=== PATIENT | female | born 1950 | race Caucasian/White ===

== ENCOUNTER 2018-12-14 11:28 | Emergency (ER) | payer OTHER ==
[2018-12-14] MEDS ORDERED: IPRATROPIUM/ALBUTEROL 3 ML VIAL NEB ONE (11:43)
--- NOTE | 2018-12-14 12:16 | RAD ---
EXAM DESCRIPTION: Chest,1 View CLINICAL HISTORY: 68 years Female, possible vent assoc pna COMPARISON: Radiograph of the chest dated 12/06/2018.. TECHNIQUE: AP radiograph of the chest was obtained. FINDINGS: Trachea is midline.The cardiomediastinal silhouette is normal in size. The pulmonary vasculature is within normal limits. Multifocal patchy airspace opacities are identified throughout both lungs, most likely representing multifocal pneumonia. Tracheostomy tube is identified.. IMPRESSION: Multifocal patchy airspace opacities are identified throughout both lungs, most likely representing multifocal pneumonia. Electronically signed by: Elin Fox MD 12/14/2018 12:14 PM CDT
[2018-12-14] MEDS ORDERED: SODIUM CHLORIDE 0.9% 1000ML 1,000 ML IVS ONE (12:19)
[2018-12-14] MEDS ORDERED: CEFEPIME 1 GM in SODIUM CHLORIDE 0.9% 50ML 50 ML IVPB ONE (12:20)
[2018-12-14] MEDS ORDERED: VANCOMYCIN HCL INJ 1,000 MG in SODIUM CHLORIDE 0.9% 250ML 250 ML IVPB ONE (12:22)
[2018-12-14] MEDS ORDERED: SODIUM CHLORIDE 0.9% 50ML 50 ML ONE (12:24)
[2018-12-14] MEDS ORDERED: CEFEPIME 2 GM VIAL ONE (12:24)
[2018-12-14] MEDS ORDERED: methylPREDNISolone SODIUM SUC 125 MG/2 ML VIAL IV ONE (12:38)
[2018-12-14] MEDS ORDERED: DEXTROSE 5% 250ML 250 ML ONE (12:49)
[2018-12-14] MEDS ORDERED: NOREPINEPHRINE BITARTRATE 4 MG/4 ML VIAL IVPB ONE (12:49)
[2018-12-14] MEDS ORDERED: NOREPINEPHRINE BITARTRATE 4 MG in DEXTROSE 5% 250ML 250 ML IVPB SCH (13:00)
[2018-12-14] MEDS ORDERED: SODIUM CHLORIDE 0.9% 250ML 250 ML ONE ×2 (13:14→14:29)
[2018-12-14] MEDS ORDERED: VANCOMYCIN HCL INJ 1,000 MG VIAL IVPB ONE (13:14)
[2018-12-14] MEDS ORDERED: AZITHROMYCIN IV 500 MG in SODIUM CHLORIDE 0.9% 250ML 250 ML IVPB ONE (14:03)
--- NOTE | 2018-12-14 14:07 | ED.PDOC ---
History of Present Illness - General Chief Complaint: Respiratory Problem Stated Complaint: possible aspiration Time Seen by Provider: 12/14/18 11:41 Source: patient Exam Limitations: no limitations - History of Present Illness Initial Comments: the patient is a 68-year-old female with progressive neurological disease ALS presenting secondary to new onset fever and hypoxia. The patient is ventilator dependent chronically and has a PEG tube. Apparently the patient had no fever and good oxygen saturation about 3 hours prior to EMS being called. The patient's saturation dropped to around 88% and the patient spiked a 102 fever so EMS was called. The patient is very thin and frail. Normal systolic blood pressures according to staff are in the high 90s to low 100s. Blood pressures here on the systolic end have ranged from 70-85. the patient is pale and weak. She is arousable to voice and is able to communicate. She is not in pain. She has had a productive sputum. She has a hard increased oxygen concentrations to maintain adequate saturations. She apparently did vomit up some of her tube feeding this morning. She was doing well yesterday. Timing/Duration: 4-6 hours Severity: moderate Improving Factors: nothing Worsening Factors: nothing Associated Symptoms: fever/chills, malaise, weakness Allergies/Adverse Reactions: Allergies NO KNOWN ALLERGY Allergy (Verified 12/14/18 11:44) Review of Systems - Review of Systems Review of Systems: 12/14/18 14:08 extensive questioning is however limited due to patient's more limited communication abilities. Constitutional: States: malaise, weakness EENTM: States: no symptoms reported Respiratory: States: short of breath Cardiology: States: no symptoms reported Gastrointestinal/Abdominal: States: no symptoms reported Genitourinary: States: no symptoms reported Musculoskeletal: States: no symptoms reported Skin: States: no symptoms reported Neurological: States: see HPI Endocrine: States: no symptoms reported All other Systems: No Change from Baseline Past Medical History (General) - Patient Medical History Hx Stroke: No Hx Congestive Heart Failure: No Hx Thyroid Disease: Yes Hx Diabetes: No - Vaccination History Hx Influenza Vaccination: - UNKNOWN Hx Pneumococcal Vaccination: - UNKNOWN - Activities of Daily Living Correction/Assisted Living (if applicable):: [facility] Family Medical History - Family History Mother Family History: Unknown Living Status: Unknown Physical Exam - Physical Exam General Appearance: Alert, Frail, Ill Appearing Eye Exam: bilateral normal Ears, Nose, Throat: hearing grossly normal, normal pharynx - mucous membranes are mildly dry Neck: full range of motion, supple Respiratory: no accessory muscle use, other - patient is ventilator dependent for respiratory drive. She does have scattered Rales and rhonchi. Cardiovascular/Chest: normal peripheral pulses, no edema, other Peripheral Pulses: radial,right: 2+, radial,left: 2+ - egular rate, dorsalis pedis,right: 2+, dorsalis pedis,left: 2+ Gastrointestinal/Abdominal: non tender, soft, other - G-tube is in place Extremity: non-tender, no pedal edema, no calf tenderness, normal capillary refill, other - the patient does have significant stiffness primarily of her lower extremities. 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 Skin Exam: pallor Comments: Vital Signs - 24 hr 12/14/18 12/14/18 12/14/18 11:38 11:57 13:06 Temperature 98.7 F Pulse Rate 86 Pulse Rate [ 82 Right Brachial] Respiratory 18 19 Rate Respiratory 18 18 Rate [Volume Control Data] Blood Pressure 83/46 [Right Arm] O2 Sat by Pulse 97 100 Oximetry 12/14/18 13:29 Temperature Pulse Rate Pulse Rate [ Right Brachial] Respiratory 22 Rate Respiratory Rate [Volume Control Data] Blood Pressure [Right Arm] O2 Sat by Pulse Oximetry Progress - Progress Progress: 12/14/18 14:19 the patient's a 68-year-old female presenting to the emergency room by EMS secondary to hypoxia and fever. The patient has ventilator dependent bilateral pneumonia. She has been placed on vancomycin, cefepime and azithromycin. Blood and sputum cultures are being done. The patient additionally has septic shock. She has received 2 L of IV fluids and has been started on levophed. She is maintaining systolic blood pressures around 100 with 5 mics. She has required around 40% FiO2 to maintain oxygen saturations. The patient is being transferred to [facility] for higher level of care. She has received a breathing treatment as well. Central line has been placed as per request of receiving facility. 12/14/18 14:24 critical care time spent 40 minutes excluding otherwise billable procedures. - Results/Orders Results/Orders: 12/14/18 11:42 Telemetry .CONTINUOUS 12/14/18 11:55 Mechanical Ventilation DAILY 12/14/18 11:58 BLOOD CULTURE Stat 12/14/18 12:21 SPUTUM CULTURE Stat 12/14/18 12:22 Vancomycin HCl Inj 1,000 mg Sodium Chloride 0.9% 250Ml [NS 250ml] 250 ml IVPB ONCE 12/14/18 13:00 Norepinephrine Bitartrate [Levophed] 4 mg Dextrose 5% 250Ml [D5W 250ml] 250 ml IVPB PRN 12/14/18 13:05 Urine Culture Stat hest x-ray shows significant scattered infiltrates. Laboratory Results - last 24 hr 12/14/18 12/14/18 12/14/18 11:58 11:58 11:58 WBC 8.7 RBC 2.96 L Hgb 8.9 L Hct 26.5 L MCV 89.6 MCH 30.2 MCHC 33.7 RDW 16.2 H Plt Count 194 MPV 8.0 Absolute Neuts (auto) 7.50 H Absolute Lymphs (auto) 0.80 L Absolute Monos (auto) 0.40 Absolute Eos (auto) 0.00 Absolute Basos (auto) 0.00 Neutrophils % 85.8 H Lymphocytes % 9.0 L Monocytes % 5.1 Eosinophils % 0.0 L Basophils % 0.1 PT 11.3 H INR 1.13 PTT (SP) 31.9 H Sodium 137 Potassium 3.5 L Chloride 102 Carbon Dioxide 25 Anion Gap 13.5 BUN 24 H Creatinine 0.46 L BUN/Creatinine Ratio 52.2 H Random Glucose 124 H Serum Osmolality 279.3 Lactic Acid Calcium 8.6 Total Bilirubin 0.3 AST 17 ALT 10 Alkaline Phosphatase 65 Creatine Kinase 17 L CK-MB (CK-2) 0.7 CK-MB (CK-2) % 4.12 Troponin I < 0.02 B-Natriuretic Peptide 41.1 Serum Total Protein 6.9 Albumin 2.4 L Globulin 4.5 H Albumin/Globulin Ratio 0.5 L Urine Color Urine Appearance Urine pH Ur Specific [place] Urine Protein Urine Glucose (UA) Urine Ketones Urine Blood Urine Nitrite Urine Bilirubin Urine Urobilinogen Ur Leukocyte Esterase Urine RBC Urine WBC Ur Epithelial Cells Urine Bacteria 12/14/18 12/14/18 11:58 13:05 WBC RBC Hgb Hct MCV MCH MCHC RDW Plt Count MPV Absolute Neuts (auto) Absolute Lymphs (auto) Absolute Monos (auto) Absolute Eos (auto) Absolute Basos (auto) Neutrophils % Lymphocytes % Monocytes % Eosinophils % Basophils % PT INR PTT (SP) Sodium Potassium Chloride Carbon Dioxide Anion Gap BUN Creatinine BUN/Creatinine Ratio Random Glucose Serum Osmolality Lactic Acid 1.8 Calcium Total Bilirubin AST ALT Alkaline Phosphatase Creatine Kinase CK-MB (CK-2) CK-MB (CK-2) % Troponin I B-Natriuretic Peptide Serum Total Protein Albumin Globulin Albumin/Globulin Ratio Urine Color Dk yellow H Urine Appearance Cloudy Urine pH 7.5 Ur Specific [place] 1.020 Urine Protein 30 Urine Glucose (UA) Negative Urine Ketones Trace Urine Blood Small H Urine Nitrite Negative Urine Bilirubin Small H Urine Urobilinogen 1.0 Ur Leukocyte Esterase Small H Urine RBC 3-5 H Urine WBC 3-5 H Ur Epithelial Cells 0-1 Urine Bacteria 4+ H Procedures - Central Line Femoral vein Central Line Lumen: triple Central Line Procedure Prep: betadine prep Anesthesia: Lidocaine cc's of anesthesia: 2 Complications: none Central Line Post Position: sutured Progress: Central line placed in the right femoral vein after ultrasound confirmation of location. Triple-lumen catheter placed. All lines flush and draw well. Sterile prep and drape were used. 2 cc of lidocaine were used for local anesthetic. Patient tolerated the procedure well. Departure - Departure Clinical Impression: Septic shock, Ventilator associated pneumonia Disposition: Transfer to Hospital Departure Forms: ED Discharge - Pt. Copy, Patient Portal Self Enrollment Referrals: TORY POPE [Primary Care Provider] - 1-2 Weeks Transfer to Outside Facility - Transfer Information Accepting Provider:: dr vyas Accepting Facility: [facility] Reason for Transfer: ICU
[2018-12-14] MEDS ORDERED: AZITHROMYCIN IV 500 MG VIAL IVPB ONE (14:29)
[2018-12-14 14:33] VITALS: TEMP 97.6
[2018-12-14 15:22] VITALS: BP 113/55; O2SAT 94
== END 2018-12-14 15:22 | disposition short-term general hospital (02) ==
LOC: ER 11:28
DX: A41.9 Sepsis, unspecified organism (principal); J95.851 Ventilator associated pneumonia; R65.21 Severe sepsis with septic shock; G12.21 Amyotrophic lateral sclerosis; E07.9 Disorder of thyroid, unspecified; Z99.81 Dependence on supplemental oxygen; Z93.1 Gastrostomy status; Y83.8 Other surgical procedures as the cause of abnormal reaction of the patient, or of later complication, without mention of misadventure at the time of the procedure
CPT/HCPCS: 36415; 71045; 80053; 81001; 82550; 82553; 83605; 83880; 84484; 85025; 85610; 85730; 87040; 87086; 87502; 94002; 94640; A4216; J0456; J0692; J2930; J3370; J7030; J7050; J7060; J7620

== ENCOUNTER 2019-03-29 10:27 | Emergency (ER) | payer OTHER ==
--- NOTE | 2019-03-29 11:28 | CT ---
EXAM DESCRIPTION: Cervical Spine CLINICAL HISTORY: fall COMPARISON: None Available. TECHNIQUE: Multiple axial images of the cervical spine without contrast. Multiplanar reformatted images. This exam was performed according to our departmental dose-optimization program, which includes automated exposure control, adjustment of the mA and/or kV according to patient size and/or use of iterative reconstruction technique. FINDINGS: Vertebral body stature and alignment are maintained. There is no acute fracture or destructive osseous lesion. Multilevel spondylitic changes with moderate disc narrowing from C4-C5 through C6-C7. No CT evidence of significant posterior disc bulge, spinal canal, or neural foraminal stenosis. Atherosclerosis in the visualized arteries. Masslike consolidation in the visualized right upper lobe. An endotracheal tube is present. Small bilateral mastoid effusions. IMPRESSION: 1. No CT evidence of an acute osseous abnormality in the cervical spine. 2. Masslike right upper lobe consolidation. 3. Spondylitic changes. Electronically signed by: Jhon Villaseñor MD 03/29/2019 11:26 AM CDT
--- NOTE | 2019-03-29 11:32 | CT ---
EXAM DESCRIPTION: Head CLINICAL HISTORY: fall COMPARISON: None available TECHNIQUE: Multiple axial images of the head without contrast. Multiplanar reformatted images. This exam was performed according to our departmental dose-optimization program, which includes automated exposure control, adjustment of the mA and/or kV according to patient size and/or use of iterative reconstruction technique. FINDINGS: There is no CT evidence of intracranial hemorrhage, mass effect, or large territory infarction. Moderate generalized volume loss. Mild patchy supratentorial white matter hypodensities. There are no abnormal extra-axial fluid collections. Calcific plaque in the visualized arteries. There is no acute calvarial defect. Small bilateral mastoid effusions. Mucosal thickening in the ethmoid air cells and sphenoid sinuses. IMPRESSION: 1. No CT evidence of an acute intracranial abnormality. 2. Senescent changes. Electronically signed by: Jhon Villaseñor MD 03/29/2019 11:30 AM CDT
--- NOTE | 2019-03-29 11:34 | CT ---
PROVIDED CLINICAL HISTORY/REASON FOR EXAM: fall STUDY TYPE/TECHNIQUE: CT CHEST WITHOUT IV CONTRAST This exam was performed according to our departmental dose-optimization program, which includes automated exposure control, adjustment of the mA and/or kV according to patient size and/or use of iterative reconstruction technique. COMPARISON: None at time of initial interpretation. FINDINGS: Tracheostomy with appropriate positioning. No axillary adenopathy. Normal caliber thoracic aorta. Mild coronary artery calcifications. No significant pericardial effusion. Nonobstructing left nephrolithiasis. Cholecystectomy. Otherwise the visualized upper abdomen is unremarkable. Mediastinal adenopathy. A right paratracheal reference lymph node measures 1.3 cm series 3 image 17. A reference precarinal node measures 1.1 cm series 3 image 21. No pneumothorax. No pleural effusion. There are diffuse bilateral consolidative and tree-in-bud airspace disease bilaterally, most pronounced within the lower lobes posteriorly. T12 vertebroplasty. Age-indeterminate T3 wedge compression deformity with 50% height loss anteriorly. Accentuated thoracic kyphosis. No definite acute fracture is identified. IMPRESSION: 1. No acute traumatic pathology within the chest. 2. Confluent consolidative and tree-in-bud nodular airspace disease bilaterally most pronounced within the lower lobes, which is likely infectious. Consider aspiration. Recommend repeat chest CT in three months. 3. Indeterminate mediastinal adenopathy which may be reactive. Recommend attention on follow-up. 4. Age-indeterminate anterior T3 wedge compression deformity with 50% height loss. Electronically signed by: Turner Carr MD 03/29/2019 11:32 AM CDT
--- NOTE | 2019-03-29 11:38 | RAD ---
EXAM DESCRIPTION: Pelvis CLINICAL HISTORY: 68 years Female, fall COMPARISON: None. FINDINGS: Single AP view of the pelvis shows no displaced pelvic fracture. Mild to moderate degenerative changes in both hips. No soft tissue abnormality. Medical tubing projecting over the mid abdomen is only partially visualized but probably represents a percutaneous feeding tube. IMPRESSION: No acute pelvic abnormality. If clinical suspicion of pelvic injury persists, CT should be considered. Electronically signed by: Jet Santana MD 03/29/2019 11:37 AM CDT
--- NOTE | 2019-03-29 11:39 | RAD ---
EXAM DESCRIPTION: Shoulder,Left 2 or More Views CLINICAL HISTORY: 68 years Female, fall COMPARISON: None. FINDINGS: Two views of the left shoulder show a slightly displaced fracture involving the left humeral head to the base of the greater tuberosity. Questionable extension into the humeral neck. The glenohumeral joint is anatomically aligned. The AC joint is unremarkable. A tracheostomy tube is present. No apparent left-sided rib fracture or soft tissue abnormality. IMPRESSION: Minimally displaced left humeral head fracture with questionable left humeral neck extension. If relevant, CT could be performed for further evaluation. Electronically signed by: Jet Santana MD 03/29/2019 11:38 AM CDT
[2019-03-29] MEDS ORDERED: levoFLOXacin 500 MG TAB GT ONE (11:51)
--- NOTE | 2019-03-29 12:59 | RAD ---
PROVIDED CLINICAL HISTORY/REASON FOR EXAM: fall wiht humeral head fxr Findings: Number of images: Two Location: Left elbow Osteopenia. No significant joint effusion. Mild left elbow degenerative change. No acute fracture is identified. No dislocation. No focal soft tissue abnormality. IMPRESSION: No evidence of acute process in the left elbow. Electronically signed by: Turner Carr MD 03/29/2019 12:57 PM CDT
--- NOTE | 2019-03-29 13:02 | RAD ---
PROVIDED CLINICAL HISTORY/REASON FOR EXAM: fall wiht humeral head fxr Findings: Number of images: Two Location: Left wrist Evaluation limited by the degree of osteopenia. Possible nondisplaced ulnar styloid avulsion injury. No other fracture is identified. 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 No focal soft tissue swelling. IMPRESSION: Limited examination demonstrating a possible nondisplaced ulnar styloid avulsion fracture. Electronically signed by: Turner Carr MD 03/29/2019 1:00 PM CDT
[2019-03-29] MEDS ORDERED: HYDROcodone 5MG/APAP 325MG 1 EA TAB PO ONE (13:25)
--- NOTE | 2019-03-29 13:41 | ED.PDOC ---
History of Present Illness - General Chief Complaint: Trauma Stated Complaint: Pt fell out of bed, possible left shoulder injury Time Seen by Provider: 03/29/19 10:55 Source: patient Exam Limitations: no limitations - History of Present Illness Initial Comments: the patient is a 68-year-old female presenting to the emergency room after having fallen out of bed at her long-term care facility. The patient landed on her left side. She seems to be having some pain in the left shoulder area so she was brought in. The patient has severely limited ability to communicate. She cannot speak and she can only blink with her eyes to communicate she is a paraplegic. She has multiple long-standing contractures. No obvious head trauma. No obvious pain with palpation of the neck. There is some diffuse pain around the left shoulder. She appears to have what is most likely either a lipoma or a large cyst to the posterior upper left shoulder. This is no doubt long-standing. No evidence of bruising around that. She has multiple long-standing contractures. The patient is ventilator dependent. She is ventilating easily on her maintenance settings. Timing/Duration: 1 hour Severity: moderate Improving Factors: immobilization Worsening Factors: movement Allergies/Adverse Reactions: Allergies NO KNOWN ALLERGY Allergy (Verified 12/14/18 11:44) Home Medications: Ambulatory Orders Doxycycline (Monohydrate) [Doxycycline Monohydrate] 100 mg PO DAILY #7 tab 03/29/19 Tramadol HCl 50 mg PO Q8HR PRN #20 tab 03/29/19 levoFLOXacin [Levaquin] 500 mg PO DAILY #7 tab 03/29/19 Review of Systems - Review of Systems Review of Systems: 03/29/19 13:43 review of systems is markedly limited to what staff tells us from her long-term care facility. Patient is unable to give a functional review of systems. Constitutional: States: no symptoms reported - no new Musculoskeletal: States: see HPI Neurological: States: no symptoms reported - numerous chronic issues Past Medical History (General) - Patient Medical History Hx Stroke: No Hx Congestive Heart Failure: No Hx Hypertension: No Hx Thyroid Disease: Yes - hypo Hx Diabetes: No Hx Cancer: No - Vaccination History Hx Influenza Vaccination: - UNKNOWN Hx Pneumococcal Vaccination: - UNKNOWN - Social History Hx Depression: Yes - Activities of Daily Living Penitentiary[facility]Assisted Living (if applicable):: [facility] - Female History Patient is a Female of Child Bearing Age (10 -59 yrs old): No Patient : No Family Medical History - Family History Mother Family History: Unknown Living Status: Unknown Physical Exam - Physical Exam General Appearance: Alert, Other - the patient does exhibit pain with movement of the left shoulder. Eye Exam: bilateral normal Ears, Nose, Throat: hearing grossly normal, normal pharynx Neck: non-tender, supple, other - tracheostomy is in place. Respiratory: no respiratory distress, no accessory muscle use, other - she does have bbibasilar rales. Cardiovascular/Chest: normal peripheral pulses, no edema, other - regular rate Peripheral Pulses: radial,right: 2+, radial,left: 2+ Gastrointestinal/Abdominal: soft, other - G-tube is in place Back Exam: other - soft tissue mass to the left posterior shoulder area this is either most consistent with a lipoma or a large cystic structure. Extremity: no pedal edema, normal capillary refill, other - multiple chronic contractures. Neurologic: alert Skin Exam: pallor - she does have a mild abrasion to the left knuckles Comments: Vital Signs - 24 hr 03/29/19 03/29/19 03/29/19 11:02 11:03 11:20 Temperature 98.6 F Pulse Rate [ 87 87 Pulse ox] Respiratory 22 19 Rate Respiratory 19 Rate [Volume Control Data] Blood Pressure 91/60 [R brachial] O2 Sat by Pulse 94 L 95 Oximetry 03/29/19 03/29/19 12:00 12:53 Temperature Pulse Rate [ 75 Pulse ox] Respiratory 16 16 H Rate Respiratory 20 Rate [Volume Control Data] Blood Pressure 86/52 [R brachial] O2 Sat by Pulse 94 L Oximetry Progress - Progress Progress: 03/29/19 13:49 the patient is a 68-year-old female who is ventilator dependent presenting to the emergency room after having fallen out of bed. The patient does have what appears to be in acute minimally displaced left humeral head fracture. For this conservative care will be done in the form of immobilization. She may also have a very mild nondisplaced ulnar styloid fracture on that same side. Due to her contractures, splinting is not recommended. This would likely prove very uncomfortable for her. The patient also has a T3 compression fracture of indeterminate age. I believe this is actually old however if she seems to have significant pain in her back in the near future then repeat evaluation may be warranted. The patient also appears to have bilateral lower lobe pneumonia based on CT scan. Blood work was reassuring. She did have a blood culture done as well as a sputum culture done. The patient is going to placed on Levaquin and doxycycline for the next 7 days for broad-spectrum coverage of this for ventilator associated pneumonia. She does need follow-up with the facility doctor early next week. She does not appear to be having any significant respiratory distress. She is ventilating easily. The patient be transferred back to her long-term care facility for continued management of above issues. - Results/Orders Results/Orders: 03/29/19 11:19 Capnography .ONCE Mechanical Ventilation DAILY 03/29/19 12:15 SPUTUM CULTURE Stat 03/29/19 12:25 BLOOD CULTURE Stat Laboratory Results - last 24 hr 03/29/19 03/29/19 12:25 12:25 WBC 8.4 RBC 3.49 L Hgb 10.7 L Hct 31.3 L MCV 89.9 MCH 30.6 MCHC 34.0 RDW 16.4 H Plt Count 192 MPV 9.1 Absolute Neuts (auto) 6.90 H Absolute Lymphs (auto) 0.70 L Absolute Monos (auto) 0.70 Absolute Eos (auto) 0.10 Absolute Basos (auto) 0.00 Neutrophils % 82.2 H Lymphocytes % 7.9 L Monocytes % 8.3 Eosinophils % 1.2 Basophils % 0.4 Sodium 137 Potassium 4.2 Chloride 103 Carbon Dioxide 25 Anion Gap 13.2 BUN 31 H Creatinine < 0.40 L BUN/Creatinine Ratio 77.0 H Random Glucose 123 H Serum Osmolality 281.7 Calcium 9.3 Total Bilirubin 0.3 AST 18 ALT 15 Alkaline Phosphatase 73 Serum Total Protein 8.4 H Albumin 3.0 L Globulin 5.4 H Albumin/Globulin Ratio 0.6 L x-ray of the pelvis, elbow on the left show no evidence of any acute abnormality. There is the possibility of a small ulnar styloid nondisplaced fracture on the left. X-ray of the shoulder shows a minimally displaced left humeral head fracture with possible mild extension into the humeral neck. CT scan of the chest shows bilateral lower lobe consolidations most consistent with an infectious process. Additionally there is a T3 compression fracture that is of indeterminate age. There is mild mediastinal adenopathy which may be reactive to the above infectious process. CT scan of the cervical spine and head showed no acute pathology. - EKG/XRAY/CT CT Ordered: Yes Departure - Departure Clinical Impression: Ventilator associated pneumonia Humeral head fracture Qualifiers: Encounter type: initial encounter Fracture type: closed Laterality: left Qualified Code(s): S42.292A - Other displaced fracture of upper end of left humerus, initial encounter for closed fracture Fracture of ulnar styloid Qualifiers: Encounter type: initial encounter Fracture type: closed Fracture alignment: non displaced Laterality: left Qualified Code(s): S52.615A - Nondisplaced fracture of left ulna styloid process, initial encounter for closed fracture Fall at [facility] Qualifiers: Encounter type: initial encounter Qualified Code(s): W19.XXXA - Unspecified fall, initial encounter; Y92.129 - Unspecified place in [facility] as the place of occurrence of the external cause Disposition: Discharge to Home or Self Care Condition: Fair Departure Forms: ED Discharge - Pt. Copy, Patient Portal Self Enrollment Instructions: DI for Trauma, Pneumonia in Adults Diet: regular diet Activity: increase activity as tolerated Referrals: TORY POPE [Primary Care Provider] - 1-5 Days Prescriptions: Tramadol HCl 50 mg PO Q8HR PRN #20 tab PRN Reason: Moderate Pain Doxycycline (Monohydrate) [Doxycycline Monohydrate] 100 mg PO DAILY #7 tab levoFLOXacin [Levaquin] 500 mg PO DAILY #7 tab Home Medications: Ambulatory Orders Doxycycline (Monohydrate) [Doxycycline Monohydrate] 100 mg PO DAILY #7 tab 03/29/19 Tramadol HCl 50 mg PO Q8HR PRN #20 tab 03/29/19 levoFLOXacin [Levaquin] 500 mg PO DAILY #7 tab 03/29/19 Additional Instructions: the patient is a 68-year-old female who is ventilator dependent presenting to the emergency room after having fallen out of bed. The patient does have what appears to be in acute minimally displaced left humeral head fracture. For this conservative care will be done in the form of immobilization. She may also have a very mild nondisplaced ulnar styloid fracture on that same side. Due to her contractures, splinting is not recommended. This would likely prove very uncomfortable for her. The patient also has a T3 compression fracture of indeterminate age. I believe this is actually old however if she seems to have significant pain in her back in the near future then repeat evaluation may be warranted. The patient also appears to have bilateral lower lobe pneumonia based on CT scan. Blood work was reassuring. She did have a blood culture done as well as a sputum culture done. The patient is going to placed on Levaquin and doxycycline for the next 7 days for broad-spectrum coverage of this for ventilator associated pneumonia. She does need follow-up with the facility doctor early next week. She does not appear to be having any significant respiratory distress. She is ventilating easily. The patient be transferred back to her long-term care facility for continued management of above issues.
[2019-03-29 14:48] VITALS: BP 90/53; TEMP 98; O2SAT 99
== END 2019-03-29 14:22 ==
LOC: ER 10:27
DX: S42.292A Other displaced fracture of upper end of left humerus, initial encounter for closed fracture (principal); S52.615A Nondisplaced fracture of left ulna styloid process, initial encounter for closed fracture; J95.851 Ventilator associated pneumonia; S60.512A Abrasion of left hand, initial encounter; G82.20 Paraplegia, unspecified; F32.9 Major depressive disorder, single episode, unspecified; E03.9 Hypothyroidism, unspecified; W06.XXXA Fall from bed, initial encounter; Y92.129 Unspecified place in nursing home as the place of occurrence of the external cause; Z99.11 Dependence on respirator [ventilator] status; Z93.1 Gastrostomy status

== ENCOUNTER 2019-07-27 08:00 | Emergency (ER) | payer MEDICARE, MEDICAID ==
[2019-07-27] MEDS ORDERED: ASPIRIN TABLET 325 MG TAB PO ONE (08:06)
[2019-07-27] MEDS ORDERED: SODIUM CHLORIDE 0.9% (FLUSH) 10 ML SYG IV PRN (08:06)
--- NOTE | 2019-07-27 09:07 | RAD ---
EXAM DESCRIPTION: Chest,1 View CLINICAL HISTORY: Confusion COMPARISON: 14 Dec 2018 TECHNIQUE: AP portable chest FINDINGS: A background of chronic interstitial lung disease is observed. The heart is within range of normal. A tracheostomy tube is seen at the level of the thoracic inlet. There is increasing parenchymal consolidation in the right upper chest suggestive of an acute infiltrate. Surgical clips are seen in the right upper quadrant. There is evidence of an upper lumbar vertebral body augmentation. IMPRESSION: 1. A background of chronic interstitial fibrosis is observed. 2. Increasing parenchymal lung disease is observed in the right upper chest suggesting an acute infiltrate. Electronically signed by: Jerome Morillo MD 07/27/2019 9:05 AM [employer]LY[employer]
--- NOTE | 2019-07-27 09:16 | CT ---
EXAM DESCRIPTION: Head CLINICAL HISTORY: Confusion with dilated left pupil COMPARISON: 29 March 2019 TECHNIQUE: Non contrast cranial CT.This exam was performed according to our departmental dose-optimization program, which includes automated exposure control, adjustment of the mA and/or kV according to patient size and/or use of iterative reconstruction technique. FINDINGS: Mild prominence of the cortical sulci are observed consistent with atrophy. No mass lesions or mass effect are observed. No intracranial hemorrhage is noted. The orbits as imaged are normal. Mild mucosal sinus disease is observed in the sphenoid sinus air cells and right ethmoid sinus air cell. The remainder the paranasal sinuses are clear. The exam does reveal hypoaeration and hypertrophy development of the right mastoid sinus air cell complex. Minimal fluid is observed in the remaining right mastoid sinus air cells. There is also minimal fluid in the dependent left mastoid sinus air cells. IMPRESSION: Senescent changes are observed. No acute parenchymal pathology is detected. The exam does reveal mild mucosal sinus disease. Electronically signed by: Jerome Morillo MD 07/27/2019 9:14 AM [facility]
--- NOTE | 2019-07-27 10:01 | ED.PDOC ---
History of Present Illness - General Chief Complaint: General Stated Complaint: Blown L pupil per nsg home Time Seen by Provider: 07/27/19 08:06 Source: patient, RN notes reviewed, Vital Signs reviewed, EMS notes reviewed, old records - March and December visits to the emergency department Exam Limitations: clinical condition - patient is a vent patient on a trach collar with a markedly dilated left pupil consistent with acute stroke. - History of Present Illness Timing/Duration: unsure - Per usp this blown left pupil is a new physical findings Severity: moderate Improving Factors: nothing Worsening Factors: nothing Associated Symptoms: other - unknown Allergies/Adverse Reactions: Allergies NO KNOWN ALLERGY Allergy (Verified 12/14/18 11:44) Home Medications: Ambulatory Orders Acetaminophen [Tylenol] 650 mg PEG Q6H PRN 07/27/19 Alendronate Sodium 10 mg PEG .QTUESDAY 07/27/19 Atropine 1% Ophth Shereen [(None)] 1 drop SL Q4H PRN 07/27/19 Chlorhexidine Gluconate (Mouth [Chlorhexidine Gluconate] 0.12 % MT Q8H PRN 07/27/19 Cholecalciferol [D 1000] 1,000 unit PEG .QFRIDAY 07/27/19 Glycopyrrolate 1 mg PEG TID 07/27/19 Levothyroxine Sodium 50 mcg PEG DAILY 07/27/19 Meloxicam 7.5 mg PEG DAILY 07/27/19 Potassium Bicarbonate-Citric A [Effer-K] 1 tab PEG DAILY 07/27/19 Pramipexole Dihydrochloride [Mirapex] 1 mg PEG BID 07/27/19 Ranitidine HCl 150 mg PEG DAILY 07/27/19 Sennosides [Senna] 8.6 mg PO BID 07/27/19 Sertraline HCl 25 mg PEG DAILY 07/27/19 Tramadol HCl 50 mg PEG Q12H PRN 07/27/19 Trazodone HCl [Trazodone Hydrochloride] 25 mg PEG BEDTIME 07/27/19 Review of Systems - Review of Systems Review of Systems: 07/27/19 10:03 unable to obtain a review of systems except for a blown left pupil secondary to patient condition and no family members to provide further information. EENTM: States: other - left pupil is markedly dilated and unresponsive to light Respiratory: States: other - on a trach collar Unable to Obtain Due To: condition, clinical condition - patient is obtunded and on a trach collar Past Medical History (General) - Patient Medical History Hx Stroke: No Hx Congestive Heart Failure: No Hx Hypertension: No Hx Thyroid Disease: Yes - Hypothyroidism Hx Diabetes: No Hx Cancer: No - Vaccination History Hx Influenza Vaccination: - UNKNOWN Hx Pneumococcal Vaccination: - UNKNOWN - Social History Hx Depression: Yes - Activities of Daily Living [facility]/Assisted Living (if applicable):: [facility] - Female History Patient : No Family Medical History - Family History Mother Family History: Unknown Living Status: Unknown Physical Exam - Physical Exam General Appearance: Emaciated, Frail, Ill Appearing, Well Developed, Well Groomed Eye Exam: left abnormal pupil - markedly dilated, bilateral abnormal EOM Ears, Nose, Throat: other - patient is edentulous with dry mucous membranes Neck: limited range of motion, other - ratio on a trach collar Respiratory: no respiratory distress, no accessory muscle use, rhonchi - diffusely throughout Cardiovascular/Chest: no edema, no gallop, no murmur Gastrointestinal/Abdominal: normal bowel sounds, soft Extremity: no pedal edema, normal capillary refill Neurologic: aphasia, other - patient is obtunded and is nonresponsive. Skin Exam: warm/dry Lymphatic: no adenopathy Progress - Progress Progress: differential diagnosis: Stroke, pneumonia, electrolyte abnormality, sepsis among monitors. 07/27/19 10:47 I have spoken with at [facility] and he has accepted the patient to the ER for further evaluation and admission. Froilan Martinez M.D. #[id number] - Results/Orders Results/Orders: 07/27/19 08:06 Sodium Chloride 0.9% (Flush) [Saline Flush Syringe] 10 ml IV PRN PRN 07/27/19 08:15 EKG STAT 07/27/19 08:30 Capnography .ONCE Mechanical Ventilation DAILY Laboratory Results - last 24 hr 07/27/19 07/27/19 07/27/19 08:25 08:25 08:25 WBC 18.0 H RBC 4.10 L Hgb 12.4 Hct 37.5 MCV 91.4 MCH 30.3 MCHC 33.1 RDW 16.9 H Plt Count 219 MPV 9.1 Absolute Neuts (auto) 16.80 H Absolute Lymphs (auto) 0.60 L Absolute Monos (auto) 0.60 Absolute Eos (auto) 0.00 Absolute Basos (auto) 0.00 Neutrophils % 93.0 H Lymphocytes % 3.5 L Monocytes % 3.1 Eosinophils % 0.2 L Basophils % 0.2 PT 10.9 INR 1.09 PTT (SP) 25.9 Sodium 136 Potassium 6.3 H Chloride 99 L Carbon Dioxide 28 Anion Gap 15.3 BUN 83 H Creatinine < 0.40 L BUN/Creatinine Ratio 207.0 H POC Glucose Random Glucose 189 H Serum Osmolality 302.1 H Calcium 9.9 Total Bilirubin 0.2 AST 33 ALT 27 Alkaline Phosphatase 85 Creatine Kinase 60 CK-MB (CK-2) 17.4 H* CK-MB (CK-2) % Not Reportable Troponin I 0.68 H* Serum Total Protein 8.3 H Albumin 2.7 L Globulin 5.6 H Albumin/Globulin Ratio 0.5 L 07/27/19 08:25 WBC RBC Hgb Hct MCV MCH MCHC RDW Plt Count MPV Absolute Neuts (auto) Absolute Lymphs (auto) Absolute Monos (auto) Absolute Eos (auto) Absolute Basos (auto) Neutrophils % Lymphocytes % Monocytes % Eosinophils % Basophils % PT INR PTT (SP) Sodium Potassium Chloride Carbon Dioxide Anion Gap BUN Creatinine BUN/Creatinine Ratio POC Glucose 183 H Random Glucose Serum Osmolality Calcium Total Bilirubin AST ALT Alkaline Phosphatase Creatine Kinase CK-MB (CK-2) CK-MB (CK-2) % Troponin I Serum Total Protein Albumin Globulin Albumin/Globulin Ratio EXAM DESCRIPTION: Head CLINICAL HISTORY: Confusion with dilated left pupil COMPARISON: 29 March 2019 TECHNIQUE: Non contrast cranial CT.This exam was performed according to our departmental dose-optimization program, which includes automated exposure control, adjustment of the mA and/or kV according to patient size and/or use of iterative reconstruction technique. FINDINGS: Mild prominence of the cortical sulci are observed consistent with atrophy. No mass lesions or mass effect are observed. No intracranial hemorrhage is noted. The orbits as imaged are normal. Mild mucosal sinus disease is observed in the sphenoid sinus air cells and right ethmoid sinus air cell. The remainder the paranasal sinuses are clear. The exam does reveal hypoaeration and hypertrophy development of the right mastoid sinus air cell complex. Minimal fluid is observed in the remaining right mastoid sinus air cells. There is also minimal fluid in the dependent left mastoid sinus air cells. IMPRESSION: Senescent changes are observed. No acute parenchymal pathology is detected. The exam does reveal mild mucosal sinus disease. Electronically signed by: Jerome Morillo MD 07/27/2019 9:14 AM EXAM DESCRIPTION: Chest,1 View CLINICAL HISTORY: Confusion COMPARISON: 14 Dec 2018 TECHNIQUE: AP portable chest FINDINGS: A background of chronic interstitial lung disease is observed. The heart is within range of normal. A tracheostomy tube is seen at the level of the thoracic inlet. There is increasing parenchymal consolidation in the right upper chest suggestive of an acute infiltrate. Surgical clips are seen in the right upper quadrant. There is evidence of an upper lumbar vertebral body augmentation. IMPRESSION: 1. A background of chronic interstitial fibrosis is observed. 2. Increasing parenchymal lung disease is observed in the right upper chest suggesting an acute infiltrate. Electronically signed by: Jerome Morillo MD 07/27/2019 9:05 AM 07/27/19 08:06 Sodium Chloride 0.9% (Flush) [Saline Flush Syringe] 10 ml IV PRN PRN 07/27/19 08:15 EKG STAT 07/27/19 08:30 Capnography .ONCE Mechanical Ventilation DAILY 07/27/19 10:09 URINALYSIS Stat 07/27/19 10:15 Azithromycin IV [Zithromax IV] 500 mg Sodium Chloride 0.9% 250Ml [NS 250ml] 250 ml IVPB ONCE Vancomycin HCl Inj 750 mg Sodium Chloride 0.9% 250Ml [NS 250ml] 250 ml IVPB ONCE 07/27/19 10:19 Sodium Chloride 0.9% 1000ML [Ns 1000 ml] 1,000 ml IVS ONCE 07/27/19 10:30 BLOOD CULTURE Stat Laboratory Results - last 24 hr 07/27/19 07/27/19 07/27/19 08:25 08:25 08:25 WBC 18.0 H RBC 4.10 L Hgb 12.4 Hct 37.5 MCV 91.4 MCH 30.3 MCHC 33.1 RDW 16.9 H Plt Count 219 MPV 9.1 Absolute Neuts (auto) 16.80 H Absolute Lymphs (auto) 0.60 L Absolute Monos (auto) 0.60 Absolute Eos (auto) 0.00 Absolute Basos (auto) 0.00 Neutrophils % 93.0 H Lymphocytes % 3.5 L Monocytes % 3.1 Eosinophils % 0.2 L Basophils % 0.2 PT 10.9 INR 1.09 PTT (SP) 25.9 Sodium 136 Potassium 6.3 H Chloride 99 L Carbon Dioxide 28 Anion Gap 15.3 BUN 83 H Creatinine < 0.40 L BUN/Creatinine Ratio 207.0 H POC Glucose Random Glucose 189 H Serum Osmolality 302.1 H Lactic Acid Calcium 9.9 Total Bilirubin 0.2 AST 33 ALT 27 Alkaline Phosphatase 85 Creatine Kinase 60 CK-MB (CK-2) 17.4 H* CK-MB (CK-2) % Not Reportable Troponin I 0.68 H* Serum Total Protein 8.3 H Albumin 2.7 L Globulin 5.6 H Albumin/Globulin Ratio 0.5 L 07/27/19 07/27/19 08:25 10:30 WBC RBC Hgb Hct MCV MCH MCHC RDW Plt Count MPV Absolute Neuts (auto) Absolute Lymphs (auto) Absolute Monos (auto) Absolute Eos (auto) Absolute Basos (auto) Neutrophils % Lymphocytes % Monocytes % Eosinophils % Basophils % PT INR PTT (SP) Sodium Potassium Chloride Carbon Dioxide Anion Gap BUN Creatinine BUN/Creatinine Ratio POC Glucose 183 H Random Glucose Serum Osmolality Lactic Acid 1.2 Calcium Total Bilirubin AST ALT Alkaline Phosphatase Creatine Kinase CK-MB (CK-2) CK-MB (CK-2) % Troponin I Serum Total Protein Albumin Globulin Albumin/Globulin Ratio Departure - Departure Clinical Impression: Dehydration, Renal insufficiency, Elevated troponin I level Right upper lobe pneumonia Qualifiers: Pneumonia type: due to unspecified organism Qualified Code(s): J18.9 - Pneumonia, unspecified organism CVA (cerebral vascular accident) Qualifiers: CVA mechanism: embolism Precerebral and cerebral artery: unspecified cerebral artery Qualified Code(s): I63.40 - Cerebral infarction due to embolism of unspecified cerebral artery Time of Disposition: 10:53 Disposition: Transfer to Hospital Condition: Poor Departure Forms: ED Discharge - Pt. Copy, Patient Portal Self Enrollment Referrals: TORY POPE [Primary Care Provider] - 1-2 Weeks Home Medications: Ambulatory Orders Acetaminophen [Tylenol] 650 mg PEG Q6H PRN 07/27/19 Alendronate Sodium 10 mg PEG .QTUESDAY 07/27/19 Atropine 1% Ophth Shereen [(None)] 1 drop SL Q4H PRN 07/27/19 Chlorhexidine Gluconate (Mouth [Chlorhexidine Gluconate] 0.12 % MT Q8H PRN 07/27/19 Cholecalciferol [D 1000] 1,000 unit PEG .QFRIDAY 07/27/19 Glycopyrrolate 1 mg PEG TID 07/27/19 Levothyroxine Sodium 50 mcg PEG DAILY 07/27/19 Meloxicam 7.5 mg PEG DAILY 07/27/19 Potassium Bicarbonate-Citric A [Effer-K] 1 tab PEG DAILY 07/27/19 Pramipexole Dihydrochloride [Mirapex] 1 mg PEG BID 07/27/19 Ranitidine HCl 150 mg PEG DAILY 07/27/19 Sennosides [Senna] 8.6 mg PO BID 07/27/19 Sertraline HCl 25 mg PEG DAILY 07/27/19 Tramadol HCl 50 mg PEG Q12H PRN 07/27/19 Trazodone HCl [Trazodone Hydrochloride] 25 mg PEG BEDTIME 07/27/19 Critical Care Note - Critical Care Note Total Time (mins): 45 Transfer to Outside Facility - Transfer Information Decision to Transfer Date: 07/27/19 Decision to Transfer Time: 09:45 Reason for Transfer: required specialist not available Accepting Facility: [facility]
[2019-07-27] MEDS ORDERED: CEFEPIME 1 GM in SODIUM CHLORIDE 0.9% 50ML 50 ML IVPB ONE (10:14)
[2019-07-27] MEDS ORDERED: VANCOMYCIN HCL INJ 750 MG in SODIUM CHLORIDE 0.9% 250ML 250 ML IVPB ONE (10:15)
[2019-07-27] MEDS ORDERED: AZITHROMYCIN IV 500 MG in SODIUM CHLORIDE 0.9% 250ML 250 ML IVPB ONE (10:15)
[2019-07-27] MEDS ORDERED: SODIUM CHLORIDE 0.9% 1000ML 1,000 ML IVS ONE (10:19)
[2019-07-27] MEDS ORDERED: CEFEPIME 2 GM VIAL ONE ×2 (11:08→11:12)
[2019-07-27] MEDS ORDERED: SODIUM CHLORIDE 0.9% 50ML 50 ML ONE (11:08)
[2019-07-27 17:16] VITALS: O2SAT 94
[2019-07-27 17:19] VITALS: BP 102/63; TEMP 99.1
== END 2019-07-27 11:30 | disposition short-term general hospital (02) ==
LOC: ER 08:00
DX: I63.40 Cerebral infarction due to embolism of unspecified cerebral artery (principal); J18.9 Pneumonia, unspecified organism; E86.0 Dehydration; R79.89 Other specified abnormal findings of blood chemistry; N28.9 Disorder of kidney and ureter, unspecified; H57.04 Mydriasis; E03.9 Hypothyroidism, unspecified; F32.9 Major depressive disorder, single episode, unspecified; Z79.899 Other long term (current) drug therapy; Z99.11 Dependence on respirator [ventilator] status
CPT/HCPCS: 36415; 70450; 71045; 80053; 82550; 82553; 82948; 83605; 84484; 85025; 85610; 85730; 87040; 94770; A4216; J0692; J7030

== ENCOUNTER → 2019-11-07 | Outpatient (CLI) | payer MEDICARE, MEDICAID | LOC: GOCC 12:11 | PROVIDERS: ATTEND Internal Medicine | DX: R30.0 Dysuria (principal) ==

== ENCOUNTER → 2019-11-30 | Outpatient (CLI) | payer MEDICARE, MEDICAID | LOC: GOCC 07:33 | PROVIDERS: ATTEND Internal Medicine | DX: D64.9 Anemia, unspecified (principal); R09.3 Abnormal sputum; R06.02 Shortness of breath ==

== ENCOUNTER → 2020-01-04 | Outpatient (CLI) | payer MEDICARE, MEDICAID | LOC: GOCC 07:33 | PROVIDERS: ATTEND Internal Medicine | DX: N39.0 Urinary tract infection, site not specified (principal) ==

== ENCOUNTER 2020-01-06 07:15 | Emergency (ER) | payer MEDICARE, OTHER ==
[2020-01-06] MEDS ORDERED: SODIUM CHLORIDE 0.9% (FLUSH) 10 ML SYG IV PRN (07:25)
[2020-01-06] MEDS ORDERED: SODIUM CHLORIDE 0.9% 1000ML 1,000 ML IVS ONE (07:25)
[2020-01-06] MEDS ORDERED: VANCOMYCIN HCL INJ 1,000 MG in SODIUM CHLORIDE 0.9% 250ML 250 ML IVPB ONE (07:28)
[2020-01-06] MEDS ORDERED: CEFEPIME 2 GM in SODIUM CHL 0.9% 100ML MINI-BAG 100 ML IVPB ONE (07:28)
--- NOTE | 2020-01-06 07:39 | ED.PDOC ---
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 Nursing reported tachypnea at rate of 30, breathing above her vent rate of 22. Also noted that she did not appear at her baseline. Reported recent COVID testing, but result not yet returned (done on all AL patients, per report), and she had also been on Levaquin for the past several days because of a "fever." History otherwise limited secondary to clinical condition and patient non-verbal. - History of Present Illness Allergies/Adverse Reactions: Allergies NO KNOWN ALLERGY Allergy (Verified 12/14/18 11:44) Home Medications: Ambulatory Orders Acetaminophen [Tylenol] 650 mg PEG Q6H PRN 07/27/19 Atropine 1% Ophth Shereen [(None)] 1 drop SL Q4H PRN 07/27/19 Chlorhexidine Gluconate (Mouth [Chlorhexidine Gluconate] 0.12 % MT Q8H PRN 07/27/19 Cholecalciferol [D 1000] 1,000 unit PEG .QFRIDAY 07/27/19 Potassium Bicarbonate-Citric A [Effer-K] 1 tab PEG DAILY 07/27/19 Pramipexole Dihydrochloride [Mirapex] 1 mg PEG BID 07/27/19 RX: Alendronate Sodium 10 mg PEG .QTUESDAY 07/27/19 RX: Glycopyrrolate 1 mg PEG TID 07/27/19 RX: Levothyroxine Sodium 25 mcg PEG DAILY 07/27/19 RX: Meloxicam 7.5 mg PEG DAILY 07/27/19 RX: Sertraline HCl 100 mg PEG DAILY 07/27/19 RX: Tramadol HCl 1 - 2 tablet PEG Q12H PRN 07/27/19 Sennosides [Senna] 8.6 mg PO BID 07/27/19 Trazodone HCl [Trazodone Hydrochloride] 25 mg PEG BEDTIME 07/27/19 Ascorbic Acid [Vitamin C] 500 mg PEG DAILY 01/06/20 Cetirizine HCl [ZyrTEC] 10 mg PEG DAILY 01/06/20 Cranberry-Vitamin C-Inulin [Uti-Stat] 30 ml PEG BID 01/06/20 Cyanocobalamin [Vitamin B12] 1,000 mcg PEG DAILY 01/06/20 Diphenhydramine HCl [Diphenhydramine Hydrochlo] 12.5 mg PEG BEDTIME 01/06/20 Ferrous Sulfate [Iron Supplement] 7.5 ml PEG MOFR 01/06/20 Hydrocortisone (Topical) [Hydrocortisone] 1 % EX PRN 01/06/20 Lactobacillus [Acidophilus] 1 cap PEG DAILY 01/06/20 Lactulose (Encephalopathy) [Lactulose] 30 ml PEG DAILY PRN 01/06/20 Ondansetron HCl [Zofran] 4 mg PO PRN 01/06/20 Polyethylene Glycol 3350 [Miralax] 17 gm PEG BID 01/06/20 RX: Clobetasol Propionate 0.05 % EX Q12H PRN 01/06/20 RX: Famotidine 20 mg PEG DAILY 01/06/20 RX: Folic Acid 1 mg PEG DAILY 01/06/20 RX: Gabapentin 300 mg PEG Q12H 01/06/20 RX: Ipratropium Mcgregor 0.02 % IN Q6H 01/06/20 levoFLOXacin [Levaquin] 500 mg PEG DAILY 01/06/20 Review of Systems - Review of Systems Unable to Obtain Due To: clinical condition Past Medical History (General) - Patient Medical History Hx Stroke: No Hx Congestive Heart Failure: No Hx Hypertension: No Hx Thyroid Disease: Yes - Hypothyroidism Hx Diabetes: No Hx Cancer: No - Vaccination History Hx Influenza Vaccination: - UNKNOWN Hx Pneumococcal Vaccination: - UNKNOWN - Social History Hx Depression: Yes - Activities of Daily Living Senior Living/Assisted Living (if applicable):: [facility] - Female History Patient : No Family Medical History - Family History Mother Family History: Unknown Living Status: Unknown Physical Exam - Physical Exam General Appearance: Alert, Emaciated, No apparent distress, Ill Appearing Neck: other - tracheostomy in place with no erythema, edema, or discharge noted Respiratory: no accessory muscle use, crackles - on right lung payan, rhonchi Cardiovascular/Chest: regular rate, rhythm, no murmur Peripheral Pulses: radial,right: 2+, radial,left: 2+ Gastrointestinal/Abdominal: normal bowel sounds, non tender, soft, other - g- tube in place LUQ with no bleeding, discharge, or edema Rectal Exam: other - exam: no rash, haddad catheter in place with yellow translucent urine in bag with no bleeding or discharge noted Extremity: other - chronic deformities bilateral hands Neurologic: marketing programs specialist II-XII nml as tested, other - occassionally moves BUE spontaneously, EOMI, no tremor, no nystagmus, patient not cooperative for rem ainder of neuro exam Skin Exam: normal color, warm/dry Progress - Progress Progress: 01/06/20 08:00 69yo F h/o vent-dependent ALS presents for likely SOB and AMS. Hypotensive with EMS, and patient previously noted fever and placed on levaquin by AL. Empiric sepsis treatment started. COVID testing had previously been sent by AL, pending results. Unclear baseline, but EMS reports approximately similar to past runs. [id number] DNR accompanies patient. No noted clear focal or lateralizing deficits, appears greater than 4.5hrs since AMS, and does not appear tPA candidate at this time. Plan for labs, imaging, abx and fluid resuscitation, and reassessment. 01/06/20 10:07 Unable to reach family regarding plans for transfer. 01/06/20 10:42 Lactate increased, patient not longer hypotensive after fluid resuscitation. With vent dependency, sepsis with AMS in context of uptrending lactate, disc ussed with family Lexis Heaton who agreed for transfer. She also reported patient is DNR and would like that honored. CXR viewed and interpreted by me with possible consolidation right lung payan, otherwise no acute findings. CXR had not returned at time of disposition. Spoke with Dr. Borrero, who accepted for transfer. 01/06/20 12:04 01/06/20 12:05 01/06/20 12:12 CXR result "IMPRESSION: Lungs are underinflated on this exam limiting evaluation of the lungs. No acute cardiopulmonary findings are seen. - EKG/XRAY/CT EKG: Sinus Comments: 0726 NSR rate91, normal axis, long QT, incomplete RBBB, no STEMI noted Departure - Departure Clinical Impression: Acute encephalopathy, Sepsis, Ventilator dependent Time of Disposition: 10:30 Disposition: Transfer to Hospital Condition: Serious Referrals: TORY POPE [Primary Care Provider] - 1-2 Weeks Home Medications: Ambulatory Orders Acetaminophen [Tylenol] 650 mg PEG Q6H PRN 07/27/19 Atropine 1% Ophth Shereen [(None)] 1 drop SL Q4H PRN 07/27/19 Chlorhexidine Gluconate (Mouth [Chlorhexidine Gluconate] 0.12 % MT Q8H PRN 07/27/19 Cholecalciferol [D 1000] 1,000 unit PEG .QFRIDAY 07/27/19 Potassium Bicarbonate-Citric A [Effer-K] 1 tab PEG DAILY 07/27/19 Pramipexole Dihydrochloride [Mirapex] 1 mg PEG BID 07/27/19 RX: Alendronate Sodium 10 mg PEG .QTUESDAY 07/27/19 RX: Glycopyrrolate 1 mg PEG TID 07/27/19 RX: Levothyroxine Sodium 25 mcg PEG DAILY 07/27/19 RX: Meloxicam 7.5 mg PEG DAILY 07/27/19 RX: Sertraline HCl 100 mg PEG DAILY 07/27/19 RX: Tramadol HCl 1 - 2 tablet PEG Q12H PRN 07/27/19 Sennosides [Senna] 8.6 mg PO BID 07/27/19 Trazodone HCl [Trazodone Hydrochloride] 25 mg PEG BEDTIME 07/27/19 Ascorbic Acid [Vitamin C] 500 mg PEG DAILY 01/06/20 Cetirizine HCl [ZyrTEC] 10 mg PEG DAILY 01/06/20 Cranberry-Vitamin C-Inulin [Uti-Stat] 30 ml PEG BID 01/06/20 Cyanocobalamin [Vitamin B12] 1,000 mcg PEG DAILY 01/06/20 Diphenhydramine HCl [Diphenhydramine Hydrochlo] 12.5 mg PEG BEDTIME 01/06/20 Ferrous Sulfate [Iron Supplement] 7.5 ml PEG MOFR 01/06/20 Hydrocortisone (Topical) [Hydrocortisone] 1 % EX PRN 01/06/20 Lactobacillus [Acidophilus] 1 cap PEG DAILY 01/06/20 Lactulose (Encephalopathy) [Lactulose] 30 ml PEG DAILY PRN 01/06/20 Ondansetron HCl [Zofran] 4 mg PO PRN 01/06/20 Polyethylene Glycol 3350 [Miralax] 17 gm PEG BID 01/06/20 RX: Clobetasol Propionate 0.05 % EX Q12H PRN 01/06/20 RX: Famotidine 20 mg PEG DAILY 01/06/20 RX: Folic Acid 1 mg PEG DAILY 01/06/20 RX: Gabapentin 300 mg PEG Q12H 01/06/20 RX: Ipratropium Mcgregor 0.02 % IN Q6H 01/06/20 levoFLOXacin [Levaquin] 500 mg PEG DAILY 01/06/20 Critical Care Note - Critical Care Note Total Time (mins): 35 Comments: For multiple reassessments, vent dependency, family discussion, lab interpretation, past medical record review, and transferring discussion with other providers. Transfer to Outside Facility - Transfer Information Decision to Transfer Date: 01/06/20 Decision to Transfer Time: 10:46 Reason for Transfer: ICU - vented patient not able to stay at this facility Accepting Provider:: Adair Accepting Facility: [facility]
--- NOTE | 2020-01-06 10:33 | CT ---
PROCEDURE: CT Head Without Intravenous Contrast CLINICAL INDICATION: The patient is 69 years old and is Female; AMS MAIN TECHNIQUE: Axial computed tomography images of the head/brain without intravenous contrast. Sagittal and coronal reformatted images were created and reviewed. This CT exam was performed using one or more of the following dose reduction techniques: automated exposure control, adjustment of the mA and/or kV according to patient size, and/or use of iterative reconstruction technique. COMPARISON: 07/27/2019 FINDINGS: BRAIN: There are minimal areas of hypodensity in the periventricular white matter, , which are felt to represent the sequela of small vessel ischemic disease (microangiopathy). The acevedo/white matter differentiation is intact. NO intra-or extra-axial fluid collections are seen. Early infarcts within the first 12 hours may not be visible on noncontrast CT. MIDLINE SHIFT: There is NO midline shift. VENTRICLES: There is mild stable global atrophy with prominence of the ventricles, sulci and basilar cisterns. BONES/JOINTS: Unremarkable. No calvarial fracture. SOFT TISSUES: The soft tissues of the scalp are unremarkable. VASCULATURE: Intracranial vascular calcifications are noted. SINUSES: The visualized paranasal sinuses are clear. MASTOID AIR CELLS: Chronic RIGHT mastoid opacification and underdevelopment. DENTAL: The patient is edentulous. IMPRESSION: No acute intracranial abnormality is identified. No change. Electronically signed by: Tenzin Garcia MD 01/06/2020 10:32 AM CDT
[2020-01-06 11:04] VITALS: BP 101/58; TEMP 98.6; O2SAT 97
== END 2020-01-06 11:03 | disposition short-term general hospital (02) ==
LOC: ER 07:15
DX: G93.40 Encephalopathy, unspecified (principal); E03.9 Hypothyroidism, unspecified; R41.82 Altered mental status, unspecified; I95.9 Hypotension, unspecified; Z79.899 Other long term (current) drug therapy; Z93.0 Tracheostomy status; Z99.11 Dependence on respirator [ventilator] status
CPT/HCPCS: 36415; 36600; 70450; 71045; 80053; 81001; 82550; 82553; 82803; 82805; 83605; 84484; 85025; 85610; 85730; 87040; 87077; 87086; 87186; 93005; 94002; 94760; J0692; J3370; J7030; J7050

== ENCOUNTER 2020-02-01 00:11 | Emergency (ER) | payer MEDICARE, OTHER ==
[2020-02-01] MEDS ORDERED: SODIUM CHLORIDE 0.9% (FLUSH) 10 ML SYG IV PRN (00:28)
[2020-02-01] MEDS ORDERED: IPRATROPIUM/ALBUTEROL 3 ML VIAL INH ONE (00:28)
[2020-02-01] MEDS ORDERED: ALBUTEROL SULFATE 2.5 MG/3 ML VIAL NEB ONE (00:28)
--- NOTE | 2020-02-01 00:50 | ED.PDOC ---
History of Present Illness - General Chief Complaint: Respiratory Problem Stated Complaint: Low oxygen saturation Time Seen by Provider: 02/01/20 00:28 Source: RN notes reviewed, Vital Signs reviewed, EMS notes reviewed Exam Limitations: physical impairment - Patient is a vented trach patient - History of Present Illness Initial Comments: Patient is a 69-year-old white female who [facility]. The [facility] facility called EMS secondary to low oxygen saturation around 70%. EMS noted patient to be tachycardic, afebrile with mild difficulty breathing. Patient was noncommunicative with them. EMS transported the patient here for further evaluation. Timing/Duration: 1-3 hours Severity: severe Activities at Onset: none Possible Cause: unknown cause Improving Factors: nothing, other - Manual bagging over the patient brought her O2 sats to 99% Worsening Factors: nothing Associated Symptoms: other - Patient does not verbally respond to my questions regarding other symptoms. Respiratory Risk Factors: other - Patient has a trach in place and and is vented. Allergies/Adverse Reactions: Allergies NO KNOWN ALLERGY Allergy (Verified 12/14/18 11:44) Home Medications: Ambulatory Orders Glycopyrrolate 1 mg PEG TID 07/27/19 Levothyroxine Sodium 25 mcg PEG DAILY 07/27/19 Meloxicam 7.5 mg PEG DAILY 07/27/19 Potassium Bicarbonate-Citric A [Effer-K] 1 tab PEG DAILY 07/27/19 Sennosides [Senna] 8.6 mg PO BID 07/27/19 Sertraline HCl 100 mg PEG DAILY 07/27/19 Tramadol HCl 1 - 2 tablet PEG Q12H PRN 07/27/19 Trazodone HCl [Trazodone Hydrochloride] 25 mg PEG BEDTIME 07/27/19 Cetirizine HCl [ZyrTEC] 10 mg PEG DAILY 01/06/20 Clobetasol Propionate 0.05 % EX Q12H PRN 01/06/20 Cranberry-Vitamin C-Inulin [Uti-Stat] 30 ml PEG BID 01/06/20 Diphenhydramine HCl [Diphenhydramine Hydrochlo] 12.5 mg PEG BEDTIME 01/06/20 Gabapentin 300 mg PEG Q12H 01/06/20 Hydrocortisone (Topical) [Hydrocortisone] 1 % EX PRN 01/06/20 Ipratropium Marquand 0.02 % IN Q6H 01/06/20 Lactobacillus [Acidophilus] 1 cap PEG DAILY 01/06/20 Ondansetron HCl [Zofran] 4 mg PO PRN 01/06/20 Polyethylene Glycol 3350 [Miralax] 17 gm PEG BID 01/06/20 Acetaminophen [Tylenol] 650 mg PEG Q6HRS PRN 02/01/20 Alendronate Sodium 10 mg PEG WKLY 02/01/20 Ascorbic Acid [Qc Vitamin C 500 mg] 1 chw PEG DAILY 02/01/20 Chlorhexidine Gluconate (Mouth [Chlorhexidine Gluconate] 0.12 % PO Q12HR 02/01/20 Cholecalciferol [Eql Vitamin D3] 1,000 unit PEG DAILY 02/01/20 Cyanocobalamin [B-12] 1,000 mcg PEG 02/01/20 Effer-K 20 meq PEG 02/01/20 Famotidine 20 mg PEG DAILY 02/01/20 Ferrous Sulfate Dried [Ferrous Sulfate Iron] 200 mg PEG WKLY 02/01/20 Folic Acid 1 mg PEG DAILY 02/01/20 Review of Systems - Review of Systems Review of Systems: 02/01/20 00:57 Unable to obtain a complete review of second systems secondary to patient being nonverbal Constitutional: States: see HPI Respiratory: States: short of breath Unable to Obtain Due To: condition, clinical condition Past Medical History (General) - Patient Medical History Hx Stroke: No Hx Congestive Heart Failure: No Hx Hypertension: No Hx Thyroid Disease: Yes - Hypothyroidism Hx Diabetes: No Hx Cancer: No - Vaccination History Hx Tetanus, Diphtheria Vaccination: - UNKNOWN Hx Influenza Vaccination: - UNKNOWN Hx Pneumococcal Vaccination: - UNKNOWN - Social History Hx Tobacco Use: - Unknown Hx Alcohol Use: - Unknown Hx Substance Use: - Unknown Hx Depression: Yes - Female History Patient : No Family Medical History - Family History Mother Family History: Unknown Living Status: Unknown Physical Exam - Physical Exam General Appearance: Alert, Obvious distress, Ill Appearing, Well Developed, Well Groomed, Well Hydrated, Well Nourished Eyes, Ears, Nose, Throat Exam: PERRL/EOMI, pharynx normal Neck: other - Patient with a trach in place. Respiratory: respiratory distress - Mild, decreased breath sounds, rhonchi - Diffusely throughout Cardiovascular/Chest: normal peripheral pulses, regular rate, rhythm, no murmur Peripheral Pulses: radial,right: 2+, radial,left: 2+ Gastrointestinal/Abdominal: normal bowel sounds, non tender, soft Neurologic: alert Skin Exam: normal color, warm/dry Lymphatic: no adenopathy Progress - Progress Progress: Differential diagnosis: UTI, sepsis, pneumonia, pyelonephritis among others. 02/01/20 02:20 Patient came in initially tachycardic. She is no longer tachycardic but is now mildly hypotensive. Patient has a white count of 20,500 with a left shift. Her urine appears infected. I have reviewed cultures from her previous urinalysis here from December and it is resistant to cephalosporins. Plan on patient being started on meropenem as it is sensitive to meropenem. I have arranged for transfer to [facility] for admission for UTI and bacteremia. Dr. Santana is the accepting physician. Froilan Martinez M.D. #[id number] - Results/Orders Results/Orders: CHEST, ONE VIEW XR CLINICAL HISTORY: sob COMPARISON: Chest 01/06/2020, CT chest 03/29/2019. TECHNIQUE: AP Chest. FINDINGS: Heart is normal in size. Normal cardiomediastinal contours. Coarse interstitial reticular opacities are chronic. Asymmetric right apical subpleural opacities are chronic. Asymmetric elevation of the left hemidiaphragm is also chronic. Pulmonary vascularity appears normal. Possible trace left pleural fluid. There are right upper quadrant cholecystectomy clips. There is evidence of vertebroplasty at T12. IMPRESSION: 1. Chronic interstitial and right apical lung changes. Possible trace left pleural fluid. Electronically signed by: Leanna Jeffries DO 02/01/2020 12:47 AM EKG performed 01 February 2020 at [facility] 43 hours: Normal sinus rhythm at 97 bpm, left axis deviation, incomplete right bundle branch block, prolonged QT at 384 ms, abnormal EKG. Comparison EKG not available at this time. 02/01/20 00:28 IV Care:Saline Lock per Protoc QSHIFT Telemetry .ONCE Sodium Chloride 0.9% (Flush) [Saline Flush Syringe] 10 ml IV PRN PRN Pulse Oximetry Assessment DAILY 02/01/20 00:30 EKG STAT 02/01/20 00:50 BLOOD CULTURE Stat 02/01/20 01:00 Urine Culture Stat 02/01/20 01:11 SPUTUM CULTURE Stat 02/01/20 01:52 Meropenem [Merrem] 1 gm Sodium Chl 0.9% 50Ml Min-Bag+ [NS 50ml MINI-BAG+] 50 ml IVPB ONCE 02/01/20 01:59 Sodium Chloride 0.9% 500Ml [NS 500ml] 500 ml IVS ONCE 02/01/20 02:30 LACTIC ACID Q2H 02/01/20 04:30 LACTIC ACID Q2H 02/01/20 06:30 LACTIC ACID Q2H 02/01/20 08:30 LACTIC ACID Q2H 02/01/20 09:00 Pulse Ox Daily 02/01/20 10:30 LACTIC ACID Q2H 02/01/20 12:30 LACTIC ACID Q2H 02/01/20 14:30 LACTIC ACID Q2H 02/01/20 16:30 LACTIC ACID Q2H 02/01/20 18:30 LACTIC ACID Q2H 02/01/20 20:30 LACTIC ACID Q2H 02/01/20 22:30 LACTIC ACID Q2H Laboratory Results - last 24 hr 02/01/20 02/01/20 02/01/20 00:50 00:50 00:50 WBC 20.5 H* RBC 4.12 L Hgb 12.6 Hct 38.6 MCV 93.6 MCH 30.5 MCHC 32.6 L RDW 14.9 H Plt Count 238 MPV 9.3 Absolute Neuts (auto) Not Reportable Absolute Lymphs (auto) Not Reportable Absolute Monos (auto) Not Reportable Absolute Eos (auto) Not Reportable Neutrophils % Not Reportable Neutrophils % (Manual) 87.0 H Lymphocytes % Not Reportable Lymphocytes % (Manual) 9.0 Monocytes % Not Reportable Monocytes % (Manual) 3.0 Eosinophils % Not Reportable Basophils % Not Reportable Eosinophils 1.0 Platelet Estimate Normal Normal RBC Morphology Normal rbc morph PT 10.2 INR 1.03 PTT (SP) 23.3 Sodium 139 Potassium 4.3 Chloride 103 Carbon Dioxide 30 Anion Gap 10.3 L BUN 24 H Creatinine < 0.40 L BUN/Creatinine Ratio 60.0 H Random Glucose 244 H Serum Osmolality 289.7 Lactic Acid Calcium 9.4 Total Bilirubin 0.4 AST 33 ALT 15 Alkaline Phosphatase 88 Troponin I B-Natriuretic Peptide 21.7 Serum Total Protein 9.5 H Albumin 3.6 Globulin 5.9 H Albumin/Globulin Ratio 0.6 L Urine Color Urine Appearance Urine pH Ur Specific Reliance Urine Protein Urine Glucose (UA) Urine Ketones Urine Blood Urine Nitrite Urine Bilirubin Urine Urobilinogen Ur Leukocyte Esterase Urine RBC Urine WBC Ur Epithelial Cells Calcium Oxalate Crystal Amorphous Sediment Urine Bacteria 02/01/20 02/01/20 02/01/20 00:50 00:50 01:00 WBC RBC Hgb Hct MCV MCH MCHC RDW Plt Count MPV Absolute Neuts (auto) Absolute Lymphs (auto) Absolute Monos (auto) Absolute Eos (auto) Neutrophils % Neutrophils % (Manual) Lymphocytes % Lymphocytes % (Manual) Monocytes % Monocytes % (Manual) Eosinophils % Basophils % Eosinophils Platelet Estimate Normal RBC Morphology PT INR PTT (SP) Sodium Potassium Chloride Carbon Dioxide Anion Gap BUN Creatinine BUN/Creatinine Ratio Random Glucose Serum Osmolality Lactic Acid 1.1 Calcium Total Bilirubin AST ALT Alkaline Phosphatase Troponin I < 0.02 B-Natriuretic Peptide Serum Total Protein Albumin Globulin Albumin/Globulin Ratio Urine Color Yellow Urine Appearance Cloudy Urine pH 5.0 Ur Specific Reliance >= 1.030 Urine Protein 100 H Urine Glucose (UA) Negative Urine Ketones Negative Urine Blood Large H Urine Nitrite Positive H Urine Bilirubin Negative Urine Urobilinogen 0.2 Ur Leukocyte Esterase Moderate H Urine RBC 5-10 H Urine WBC 10-20 H Ur Epithelial Cells 0 Calcium Oxalate Crystal 1+ Amorphous Sediment 1+ Urine Bacteria 3+ H Vital Signs 02/01/20 02/01/20 02/01/20 00:15 00:18 00:20 Temperature 97.4 F L Pulse Rate Pulse Rate [ 99 H monitor] Respiratory 22 22 Rate Respiratory 22 Rate [Volume Control Data] Blood Pressure 110/69 [Right Arm] O2 Sat by Pulse 96 Oximetry 02/01/20 02/01/20 02/01/20 00:35 01:00 01:22 Temperature 98.4 F Pulse Rate 94 H Pulse Rate [ 94 H monitor] Respiratory 25 H 22 Rate Respiratory 22 Rate [Volume Control Data] Blood Pressure 115/60 [Right Arm] O2 Sat by Pulse 93 L 94 L Oximetry Departure - Departure Clinical Impression: Tachycardia, Left shift UTI (urinary tract infection) Qualifiers: Urinary tract infection type: acute cystitis Hematuria presence: without hematuria Qualified Code(s): N30.00 - Acute cystitis without hematuria Leukocytosis Qualifiers: Leukocytosis type: unspecified Qualified Code(s): D72.829 - Elevated white blood cell count, unspecified Disposition: Transfer to Hospital Condition: Fair Departure Forms: ED Discharge - Pt. Copy, Patient Portal Self Enrollment Referrals: TORY POPE [Primary Care Provider] - 1-2 Weeks Home Medications: Ambulatory Orders Glycopyrrolate 1 mg PEG TID 07/27/19 Levothyroxine Sodium 25 mcg PEG DAILY 07/27/19 Meloxicam 7.5 mg PEG DAILY 07/27/19 Potassium Bicarbonate-Citric A [Effer-K] 1 tab PEG DAILY 07/27/19 Sennosides [Senna] 8.6 mg PO BID 07/27/19 Sertraline HCl 100 mg PEG DAILY 07/27/19 Tramadol HCl 1 - 2 tablet PEG Q12H PRN 07/27/19 Trazodone HCl [Trazodone Hydrochloride] 25 mg PEG BEDTIME 07/27/19 Cetirizine HCl [ZyrTEC] 10 mg PEG DAILY 01/06/20 Clobetasol Propionate 0.05 % EX Q12H PRN 01/06/20 Cranberry-Vitamin C-Inulin [Uti-Stat] 30 ml PEG BID 01/06/20 Diphenhydramine HCl [Diphenhydramine Hydrochlo] 12.5 mg PEG BEDTIME 01/06/20 Gabapentin 300 mg PEG Q12H 01/06/20 Hydrocortisone (Topical) [Hydrocortisone] 1 % EX PRN 01/06/20 Ipratropium Marquand 0.02 % IN Q6H 01/06/20 Lactobacillus [Acidophilus] 1 cap PEG DAILY 01/06/20 Ondansetron HCl [Zofran] 4 mg PO PRN 01/06/20 Polyethylene Glycol 3350 [Miralax] 17 gm PEG BID 01/06/20 Acetaminophen [Tylenol] 650 mg PEG Q6HRS PRN 02/01/20 Alendronate Sodium 10 mg PEG WKLY 02/01/20 Ascorbic Acid [Qc Vitamin C 500 mg] 1 chw PEG DAILY 02/01/20 Chlorhexidine Gluconate (Mouth [Chlorhexidine Gluconate] 0.12 % PO Q12HR 02/01/20 Cholecalciferol [Eql Vitamin D3] 1,000 unit PEG DAILY 02/01/20 Cyanocobalamin [B-12] 1,000 mcg PEG 02/01/20 Effer-K 20 meq PEG 02/01/20 Famotidine 20 mg PEG DAILY 02/01/20 Ferrous Sulfate Dried [Ferrous Sulfate Iron] 200 mg PEG WKLY 02/01/20 Folic Acid 1 mg PEG DAILY 02/01/20 Transfer to Outside Facility - Transfer Information Decision to Transfer Date: 02/01/20 Decision to Transfer Time: 02:00 Reason for Transfer: specialized care not available Accepting Facility: [facility]
[2020-02-01] MEDS ORDERED: cefTRIAXone SODIUM 1 GM in SODIUM CHL 0.9% 50ML MIN-BAG+ 50 ML IVPB ONE (01:49)
[2020-02-01] MEDS ORDERED: MEROPENEM 1 GM in SODIUM CHL 0.9% 50ML MIN-BAG+ 50 ML IVPB ONE (01:52)
[2020-02-01] MEDS ORDERED: SODIUM CHLORIDE 0.9% 500ML 500 ML IVS ONE (01:59)
[2020-02-01] MEDS ORDERED: SODIUM CHLORIDE 0.9% 500ML 500 ML ONE (02:02)
[2020-02-01 02:32] VITALS: BP 105/65; TEMP 97.2; O2SAT 97
== END 2020-02-01 02:43 | disposition short-term general hospital (02) ==
LOC: ER 00:11
DX: N30.00 Acute cystitis without hematuria (principal); D72.829 Elevated white blood cell count, unspecified; R00.0 Tachycardia, unspecified; E03.9 Hypothyroidism, unspecified; Z93.0 Tracheostomy status
CPT/HCPCS: 71045; 80053; 81001; 83605; 83880; 84484; 85025; 85610; 85730; 87040; 87070; 87077; 87086; 87186; 93005; 94002; 94640; J0696; J2185; J7040; J7050; J7611; J7620

== ENCOUNTER → 2020-03-15 | Outpatient (CLI) | payer MEDICARE, OTHER | LOC: GOCC 10:22 | PROVIDERS: ATTEND Internal Medicine | DX: J96.20 Acute and chronic respiratory failure, unspecified whether with hypoxia or hypercapnia (principal); J15.9 Unspecified bacterial pneumonia; Z99.11 Dependence on respirator [ventilator] status; D64.9 Anemia, unspecified; B37.3 Candidiasis of vulva and vagina; M24.541 Contracture, right hand; I95.9 Hypotension, unspecified; F33.9 Major depressive disorder, recurrent, unspecified; M62.81 Muscle weakness (generalized); N31.9 Neuromuscular dysfunction of bladder, unspecified; J18.9 Pneumonia, unspecified organism; N39.0 Urinary tract infection, site not specified; M80.012 Age-related osteoporosis with current pathological fracture, left shoulder; G12.21 Amyotrophic lateral sclerosis; R49.1 Aphonia; M24.542 Contracture, left hand; M24.549 Contracture, unspecified hand; E87.6 Hypokalemia; E03.9 Hypothyroidism, unspecified; E44.0 Moderate protein-calorie malnutrition; R11.0 Nausea; F32.89 Other specified depressive episodes; A41.9 Sepsis, unspecified organism; Z93.0 Tracheostomy status; M19.90 Unspecified osteoarthritis, unspecified site ==